=== PATIENT | male | born 1965 | race Caucasian/White ===

== ENCOUNTER → 2022-04-01 | Outpatient (CLI) | payer SELFPAY, OTHER ==
--- NOTE | 2022-04-01 15:43 | CT_ITS ---
STUDY: CT ABDOMEN AND PELVIS WITHOUT CONTRAST REASON FOR EXAM: Male, 57 years old. HEMATURIA RADIATION DOSAGE (If Supplied By Facility): CTDIvol = ( 16.35 ) mGy, DLP = ( 886.98 ) mGycm TECHNIQUE: Transaxial images were obtained from the dome of the diaphragm to the symphysis pubis without oral contrast, and without intravenous contrast. Sagittal and coronal images were reconstructed. Individualized dose optimization techniques were used for this CT. COMPARISON: None. FINDINGS: The visualized lung bases are unremarkable. The visualized portions of the heart are within normal limits. Normal liver. Normal gallbladder and extrahepatic biliary system. Normal spleen. Normal pancreas. Normal bilateral adrenal glands. No hydronephrosis or urinary tract calcifications. Solid mass arising from the left kidney measures 5.9 x 6.5 cm (image 52 series 2). Normal visualized stomach. Normal small intestine. Normal colon. The appendix is visualized and appears normal. Mild atherosclerosis. Normal inferior vena cava. Normal retroperitoneum. Nondistended urinary bladder. Normal abdominal wall. No destructive bony process. CT/Abdomen/Pelvis without Cont IMPRESSION: 5.9 x 6.5 cm left renal solid mass worrisome for renal cell carcinoma. Urology consultation recommended, if not previously done. Renal protocol CT or MRI without and with IV contrast may provide additional information. Electronically Signed: Dustin Ramesh MD (Brooks) at 16:23 EDT ,
== END | disposition home or self-care (01) ==
PROVIDERS: PCP Nurse Practitioner Family; Visit Provider Urology
DX: R31.9 Hematuria, unspecified (principal)
CPT/HCPCS: 74176

== ENCOUNTER 2022-04-14 07:32 | Inpatient (IN) | payer SELFPAY, OTHER ==
[2022-04-14] VITALS (12 sets, daily range): BP systolic 119–154; BP diastolic 79–92; PULSE 58–81; RESP 15–18; TEMP 36.4–37.4; O2SAT 93–100; BMI 29.1
--- NOTE | 2022-04-14 | KID_PTH ---
PATIENT: GLORY MIKE Jr. LOC: MS3 U#:[id number] AGE/SX: 57/M ROOM: [facility] RE04/14/[address]: Dr. 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 AM:fernando 04/14/2022 Case has been reviewed in consultation with Dr. Gee who concurs with the above diagnosis. IDC:SJ MICROSCOPIC DIAGNOSIS Left kidney, radical nephrectomy: Clear cell renal cell carcinoma. See cancer checklist below. AM:fernando 04/21/2022 COMMENT RENAL CELL CARCINOMA SUMMARY Procedure ? radical nephrectomy Specimen laterality ? left kidney Tumor size ? 7 x 6 x 5.5 cm Histologic type ? clear cell renal cell carcinoma Sarcomatoid features ? not identified Rhabdoid features ? not identified Histologic grade ? overall grade 2 with rare grade 3 Necrosis ? focally present Tumor extension ? tumor confined to kidney Margins ? uninvolved by invasive carcinoma. Lymphvascular invasion - not identified Regional lymph nodes ? no lymph nodes found Non-neoplastic kidney ? mild arterionephrosclerosis Other findings ? adrenal gland with no pathologic change PATHOLOGIC STAGE: T1b Nx Mx The above summary is in compliance with [employer] (CAP) Cancer Protocols Checklist and [place] Joint Committee on Cancer (AJCC), Staging Manual, 8th Ed. MICROSCOPIC DESCRIPTION Slides are reviewed. GROSS DESCRIPTION Received fresh for frozen section consultation labeled with the patient's name is a specimen designated left kidney. The specimen consists of a kidney with surrounding fibrofatty tissue measuring in aggregate 23 x 17.5 x 7 cm and weighing 945 gm. The kidney itself measures 12 x 8 x 6.5 cm and contains a mid to lower portion yellow-white mass with multiple foci of hemorrhage and necrosis. Two inbound customer service representative sections of the tumor are submitted for frozen section consultation. The neoplasm does not appear to extend into the perinephric fat and is not present in the soft tissue margin of resection. Dissection of the renal veins, particularly those draining the area of the mass, does not show intravascular presence of neoplasm. On sectioning, the tumor mass is roughly spherical and measures 7 x 6 x 5.5 cm. The tumor abuts the pelvicalyceal system but does not appear to invade through into the pelvicalyceal system. The tumor is sharply demarcated from the uninvolved renal parenchyma which appears essentially unremarkable. Satellite nodules of tumor are not identified. The adrenal gland measures 6.5 x 3 x 1.8 cm and is not involved by neoplasm. The distal ureter measures 8 cm in length and is grossly unremarkable. Social Work Nurse sections are submitted as follows: 1 & 2 ? inbound customer service representative sections for frozen section, 3 ? ureteric and vascular margins, 4 ? perinephric fat, 5 - renal sinus, 6 & 7 ? tumor in relationship to renal pelvis, 8 ? tumor with adjacent renal capsule, 9 ? tumor, 10-12 ? additional sections of tumor, 13 ? uninvolved kidney, 14 ? adrenal gland. / AM:fernando 04/15/2022 TC:0 CPT: 76625
--- NOTE | 2022-04-14 05:57 | EKG12_ITS ---
Test Reason : PRE OP Blood Pressure : / mmHG Vent. Rate : 075 BPM Atrial Rate : 075 BPM P-R Int : 146 ms QRS Dur : 100 ms QT Int : 388 ms P-R-T Axes : 036 -04 011 degrees QTc Int : 433 ms Normal sinus rhythm Normal ECG No previous ECGs available Confirmed by ADRI MARIA, ANTONIA ([id number]), associate entertainment editor JOHANNA CHONG ([id number]) on 04/15/2022 11:29:24 AM Referred By: George Holden Confirmed By:ANTONIA RUSH MD
[2022-04-14] MEDS: Lactated Ringers 1,000 ML 15 ML IV (06:15)
[2022-04-14 07:05] LABS: Hematocrit 40.9 % (40-54); Hemoglobin 13.6 g/dL (13.0-16.5); Mean Corp Hgb Conc 33.3 g/dL (32-36); Mean Corpuscular Hgb 32.2 pg (27.0-32.0); Mean Corpuscular Volume 96.9 fL (80-94); Mean Platelet Vol. 9.1 fl (6.2-12.0); Platelet Count 197 K/mm3 (150-450); RBC Distribution Width CV 12.8 % (11.6-14.6); RBC Distribution Width SD 45.6 fl (35.1-43.9); Red Blood Count 4.22 M/mm3 (4.6-6.2); White Blood Count 3.8 K/mm3 (4.4-11.0)
[2022-04-14] MEDS: Cefazolin 2 GM in 0.9% Normal Saline 100 ML IV (07:26)
--- NOTE | 2022-04-14 10:13 | PCM.HP.STD ---
HPI - General General Date of Admission: 04/14/22 HPI Narrative GLORY MIKE, is a 57 M who presents for a a left radical nephrectomy for suspected renal cell carcinoma. [facility] Medical History (Updated 04/14/22 @ 07:[address] George Holden MD) Anxiety Back pain Cancer Depression Dietary restriction Former smoker Heartburn History of edema History of Aquiles-French virus infection History of renal disease History of stress test Leg cramps Syncope Wears dentures Home Medications Beyond Balance 15 gtt PO/SL BID 04/12/22 [History Last Taken Unknown] Digestleyne 1 cap PO/SL BID 04/12/22 [History Last Taken Unknown] Extinguisher 1 cap PO/SL BID 04/12/22 [History Last Taken Unknown] Smooth Sailing 1 cap PO/SL BID 04/12/22 [History Last Taken Unknown] Toxic Ease 1 cap PO/SL DAILY 04/12/22 [History Last Taken Unknown] Viatmin D3 With K2 Ortho 5 gtt PO/SL BID 04/12/22 [History Last Taken Unknown] acetylcysteine [NAC] 600 mg PO BID 04/12/22 [History Last Taken Unknown] docusate sodium [Colace] 100 mg PO BID #20 cap 04/14/22 [Rx Last Taken Unknown] oxycodone-acetaminophen 1 tab PO Q6H PRN 7 Days #20 tab 04/14/22 [Rx Last Taken Unknown] Allergy/AdvReac Type Severity Reaction Status Date / Time No Known Allergies Allergy Verified 04/12/22 09:17 Surgical History History of amputation of finger of left hand History of cochlear implant Social History Smoking Status: Former smoker Vital Signs Vital Signs Vital Signs: 04/14/22 06:53 Temperature 99.4 F H Temperature Source Temporal Pulse Rate 77 Respiratory Rate 15 Respiratory Pattern Normal Blood Pressure 119/82 H Blood Pressure Mean 94 Blood Pressure Source Monitor Blood Pressure Position Semi-Fowlers Blood Pressure Location Right Arm Pulse Ox 97 Oxygen Delivery Method Room Air Weight Weight: 87 kg Body Mass Index (BMI) 29.1 Results Lab / Micro Data Result Diagrams: 04/14/22 06:48 Labs: Laboratory Results - last 24 hr 04/14/22 06:48: WBC 3.8 L, RBC 4.22 L, Hgb 13.6, Hct 40.9, MCV 96.9 H, MCH 32.2 H, MCHC 33.3, RDW Std Deviation 45.6 H, RDW Coeff of Mary Jo 12.8, Plt Count 197, MPV 9.1 04/14/22 06:48: Blood Type A POSITIVE, Antibody Screen NEGATIVE, Crossmatch See Detail
--- NOTE | 2022-04-14 10:26 | OP.PCM_ITS ---
Report of Operation Date of Procedure: 04/14/22 Pre-Operative Diagnosis: left renal mass, suspect cancer Post-Operative Diagnosis: same Surgery/Procedure Performed:: Laparoscopic robotic assisted left radical nephrectomy Description of Surgical Findings:: Patient presented to [facility] for a laparoscopic robotic assisted radical left nephrectomy. We talked about the options of management for the patient's renal mass. The patient had a renal mass. We discussed with the patient that there is always a possible metastatic disease development after this procedure and the patient understands that more treatments such as chemotherapy or oral chemotherapy may be necessary for further development of metastatic disease which may not be curable. We discussed the risks of the procedure including the risk of general anesthetic, bleeding, infection, blood transfusion, formation of hernias, recurrence of cancer in the local area, development of lymphoceles, chylous ascites, and lymph fluid collection in the renal bed. After full discussion with the patient, the patient was marked, and the patient was taken back to the operating room. Patient was taken back to the operating room was placed for supine on the table and underwent general endotracheal intubation. A Malave catheter was placed into the bladder. The patient side was recognized and marked. A timeout procedure was performed. I identified the patient the side of the surgery and the surgery that was planned to be performed. Once the patient was under general anesthetic then the patient was placed in modified lateral flank position on the patient and I had the patient's Left side up was going to proceed with a radical nephrectomy. I then infiltrated the skin with 1/2 percent Marcaine and a small incision in the skin and use a Veress needle to introduce the Veress needle into the peritoneal cavity and filled the peritoneal cavity with CO2 gas. I then placed the camera trocar under direct visualization. I then placed a right arm robotic trocar. Then if necessary scissors were used to dissect any adhesions. And then the left arm trocar was placed and a fourth robotic trocar was placed. After the trochars were placed I placed an air seal port between the #1 arm and the camera for the assistant manager retail to use during the case. Then the robot was docked and I placed scissors and prograsp and the robotic arms and proceeded first by incising the white line of Toldt and reflecting the colon off the kidney I started superiorly above the kidney reflecting the spleen of the kidney and worked all the way inferiorly after the colon was completely reflected off the kidneys fascia was grabbed and elevated and we started reflecting the mesentery of the colon off the kidney until I was able to get underneath the kidney and the inferior tail of the Gerota's fascia and I could see the gonadal vein and the ureter I went underneath the gonadal vein and the ureter and then start tracing up towards the hilum of the kidney. At this point then the fourth arm was docked and used the long Fenestrated grasper on the fourth arm to allow retraction of the kidney superiorly this allowed me to use the right and left arm to then continue the meticulous dissection toward the renal hilum it came across the gonadal vein and this was taken with clips. I dissected until I encounted the renal vein and saw bound pulse of the renal aretery. A cross destiney mbar vein was then transected and ligated with clips. Then behind the renal vein I dissected extensive and meticulous dissection was done to identify the main renal artery and several branches these were taken with clips with 2 clips down and one clip up and transected. After this meticulous dissection I made sure all the arterial inflow was taken and then the renal vein was nice and lax and then I placed 2 clips down to 1 clips up in the renal vein and transected the vein, then went superiorly and dissected between the spleen and the Gerota's fascia all the way superiorly. I then reflected the kidney off the lateral wall with electrocautery using such sharp dissection all the way down to the tail of the Gerota's fascia then came across the Gerota's fascia with an Endo PAIGE staple to staple the gonadal vein and the ureter and the fat and the inferior portion of the tail of the regional tanker truck driver's fascia then the kidney was further reflected off the lateral sidewall working away all the way superiorly until I reached the upper part of the kidney and used clips generously to control lymphatics and any small perforating blood vessels. Then finally the entire kidney within the throat fascia was free. At this point the robot was undocked. I then scrubbed in at the bedside and via the inferior fourth arm robotic trocar I placed a 15 mm Endo Catch bag and placed the specimen within the Endo Catch bag we then and made the extraction site larger around the port site and then extracted the specimen within the bag. The extraction site was then closed with 0 Vicryl in 2 layers. I then reinspected the hilum of the dissection and there was no bleeding and no significant accumulation of blood within the abdominal cavity I irrigated the abdomen copiously to ensure no bleeding. Then I closed our camera trocar with a Conor Leblanc stitch and then a closer air seal port trocar with a Conor Leblanc stitch. Then the pneumoperitoneum was released and the and all the incisions were closed in 2 layers with 4-0 Monocryl stitches. Sponges and needles were accounted for. Patient's anesthetic was reversed and extubated and taken to the PACU in stable condition blood loss was minimal. Surgeon: li Type of Anesthesia: General Drains: Malave Admit VTE Documentation VTE Present on Admission: No VTE Mechan Device Prophylaxis: SCD's VTE Pharm Prophylaxis ordered?: No
--- NOTE | 2022-04-14 10:26 | PCM.DC ---
Discharge Instructions Diet Discharge Diet: No restrictions Activity Discharge Activity: Return to Normal Activity and May Not Drive (while taking narcotic pain medications.) Dressing / Incision Call your doctor if you observe: Fever of 101 or Higher Follow Up Care Please Follow Up With: George Holden MD When: Call [phone] for an appointment Test Results: Test results from this visit will be discussed in further detail at your follow-up appointment, if applicable. Discharge Plan Admission Admit Date/Time: 04/14/22 07:32 Primary Reason for Your Visit: Left Nephrectomy Attending Provider: George Holden Primary Care Provider: Belen Lee NP Instructions Patient Instructions: Nephrectomy Dc, Discharge Instructions for ... Discharge Orders/Prescriptions Prescriptions: New docusate sodium [Colace] 100 mg capsule 100 mg PO BID Qty: 20 RF: 0 oxycodone-acetaminophen 5-325 mg tablet 1 tab PO Q6H PRN (Reason: pain) 7 Days Qty: 20 RF: 0 Continued acetylcysteine [NAC] 600 mg Capsule 600 mg PO BID RF: 0 Beyond Balance 15 gtt PO/SL BID RF: 0 Digestleyne 1 cap PO/SL BID RF: 0 Extinguisher 1 cap PO/SL BID RF: 0 Smooth Sailing 1 cap PO/SL BID RF: 0 Toxic Ease 1 cap PO/SL DAILY RF: 0 Viatmin D3 With K2 Ortho 5 gtt PO/SL BID RF: 0 Referrals / Follow Up: George Holden MD [STAFF PHYSICIAN] - Belen Lee NP, TELECOMMUNICATIONS CABLE JOINTER-C [Primary Care Provider] -
[2022-04-14] MEDS: Bupivacaine Mpf 0.5% 30 ML VIAL (10:28)
[2022-04-14] MEDS: 0.9% Normal Saline 1,000 ML 125 ML IV ×2 (12:26→19:37)
[2022-04-14] MEDS: Morphine 2 MG/ML Syringe IV ×2 (15:08→19:40)
[2022-04-14] MEDS: Ondansetron 4 MG/2 ML Vial IV (19:50)
[2022-04-15] VITALS (7 sets, daily range): BP systolic 139–150; BP diastolic 78–93; PULSE 73–85; RESP 14–18; TEMP 36.7–36.9; O2SAT 93–98
[2022-04-15] MEDS: 0.9% Normal Saline 1,000 ML 125 ML IV (03:53)
[2022-04-15] MEDS: Morphine 2 MG/ML Syringe IV (05:19)
[2022-04-15] MEDS: Ondansetron 4 MG/2 ML Vial IV (05:27)
[2022-04-15 06:00] LABS: Hematocrit 39.1 % (40-54); Hemoglobin 13.1 g/dL (13.0-16.5); Mean Corp Hgb Conc 33.5 g/dL (32-36); Mean Corpuscular Hgb 32.3 pg (27.0-32.0); Mean Corpuscular Volume 96.3 fL (80-94); Mean Platelet Vol. 9.3 fl (6.2-12.0); Platelet Count 194 K/mm3 (150-450); RBC Distribution Width CV 12.9 % (11.6-14.6); RBC Distribution Width SD 45.8 fl (35.1-43.9); Red Blood Count 4.06 M/mm3 (4.6-6.2); White Blood Count 8.2 K/mm3 (4.4-11.0)
[2022-04-15 06:26] LABS: Anion Gap 5 (5-15); BUN 13 mg/dL (7-18); Calcium,Total 9.2 mg/dL (8.5-10.1); Chloride 106 mmol/L (98-107); Creatinine, Serum 1.18 mg/dL (0.70-1.30); EST Glomerular Filtration Rate 68 mL/min (>60); Est Glom Filt Rate - Afr Amer 82 mL/min (>60); Estimated Creatinine Clearance 66.82 ml/min; Glucose 94 mg/dL (74-106); Potassium 4.4 mmol/L (3.5-5.1); Sodium Level 139 mmol/L (136-145)
--- NOTE | 2022-04-15 07:22 | PCM.PN.GU ---
Subjective Subjective sitting up in bed has not walk yet no flatus or BM, some belching Objective Data Objective Data Vital Signs: Vital Signs Temp Pulse Resp BP Pulse Ox 98.5 F 85 16 144/78 H 96 04/15/22 04:55 04/15/22 04:55 04/15/22 04:55 04/15/22 04:55 04/15/22 04:55 Oxygen Flow Rate (L/min) 2 Oxygen Delivery Method Nasal Cannula Weight: 87 kg Body Mass Index (BMI) 29.1 Intake & Output: Intake and Output for Last 24 Hours 04/13/22 04/14/22 04/15/22 23:59 23:59 23:59 Intake Total 3507.92 / 3507.92 1200 / 1200 Output Total 1000 / 1000 1050 / 1050 Balance 2507.92 / 2507.92 150 / 150 Lab / Micro Data Result Diagrams: 04/15/22 05:08 04/15/22 05:08 Labs: Laboratory Results - last 24 hr 04/14/22 06:48: Blood Type A POSITIVE, Antibody Screen NEGATIVE, Crossmatch See Detail 04/15/22 05:08: WBC 8.2, RBC 4.06 L, Hgb 13.1, Hct 39.1 L, MCV 96.3 H, MCH 32.3 H, MCHC 33.5, RDW Std Deviation 45.8 H, RDW Coeff of Mary Jo 12.9, Plt Count 194, MPV 9.3 04/15/22 05:08: Sodium 139, Potassium 4.4, Chloride 106, Carbon Dioxide 28.0, Anion Gap 5, BUN 13, Creatinine 1.18, Estim Creat Clear Calc 66.82, Est GFR (MDRD) Af Amer 82, Est GFR (MDRD) Non-Af 68, BUN/Creatinine Ratio 11.0, Glucose 94, Calcium 9.2 Assessment & Plan Assessment/Plan (1) Left kidney mass: PLAN: d/c zita whiting ivf incentive spirometer ambulate clear liquid diet
[2022-04-15] MEDS: Acetaminophen 500 MG Tablet PO ×3 (07:36→20:25)
[2022-04-15] MEDS: Docusate Sodium 100 MG Capsule PO ×2 (07:36→20:25)
[2022-04-15] MEDS: oxyCODONE 5 MG Tablet PO ×2 (07:36→13:36)
--- NOTE | 2022-04-15 11:50 | CASEMGMT ---
RN CM BATTERY STARTER CM to room to meet with patient for initial transition planning/care coordination assessment. RN ROMARIO introduced self and role at [facility]. Pt voices understanding and consents to assessment at this time. Pt resting in bed in no distress at this time. Pt is A/O. Pt is legally blind and deaf. Has cochlear implant and able to hear some and ready lips. and dtr @ bedside and helped to interpret for pt and provided most of the information. Care providers, pharmacy, and demographics verified/updated at this time. PCP: NITZA Lee Specialists: Dr Holden-urology, Dr Felix Ozuna (?sp) @ [facility] [place] for auto-immune disorder Preferred Pharmacy: [facility] Insurance: [facility] [place] Prescription Benefit: none LNOK: Keshia Living Arrangements: Lives w/ in one-story home w/no steps to enter. Independent. able to assist and son lives nearby and able to assist, as needed. Transportation: Hire drivers DME: Uses a cane. Denies needs for further DME HHC/SNF: Hx of [facility] in 2014. No hx of HHC. No needs identified. Pt and family wish for pt to return home and state has no concerns with going home at time of discharge. CM to follow for any further discharge planning/needs. Pt and family voice no concerns/needs at this time. Advised them to ask for CM if any further questions/concerns/needs arise. They voice understanding. PLAN: Home w/family support and discharge plans in place. Danica OSBORNE RN, CM
[2022-04-16] VITALS (7 sets, daily range): BP systolic 124–147; BP diastolic 84–89; PULSE 73–90; RESP 18; TEMP 36.7–37; O2SAT 90–97
[2022-04-16] MEDS: oxyCODONE 5 MG Tablet PO ×2 (01:28→08:43)
[2022-04-16] MEDS: Acetaminophen 500 MG Tablet PO ×2 (01:28→08:42)
[2022-04-16] MEDS: Docusate Sodium 100 MG Capsule PO ×2 (08:43→21:19)
--- NOTE | 2022-04-16 10:46 | PCM.PN.BLA ---
Progress Note Abdomen is nice and soft and benign no nausea or vomiting some belching Assessment & Plan Assessment/Plan (1) Left kidney mass: PLAN: Advance to regular diet as tolerated, Duphalac suppository, ambulate, simethicone to help with gas pain. We can adjust his pain medicine. Continues to progress hopefully discharge over the weekend.
[2022-04-16] MEDS: Bisacodyl 10 MG Suppository RC (11:10)
[2022-04-16] MEDS: Acetaminophen 500 MG Tablet 1000 MG PO ×2 (12:14→21:19)
[2022-04-17] MEDS: oxyCODONE 5 MG Tablet PO ×3 (00:34→17:56)
[2022-04-17 03:09] VITALS: BP 140/90; PULSE 93; RESP 18; TEMP 36.8; O2SAT 93
[2022-04-17] MEDS: Acetaminophen 500 MG Tablet 1000 MG PO ×3 (06:29→21:11)
[2022-04-17 07:27] VITALS: O2SAT 92
--- NOTE | 2022-04-17 08:33 | PCM.PN.BLA ---
Progress Note 57-year-old male status post radical nephrectomy on the left side he is doing well, tolerating regular diet but no gas or bowel movements yet still burping. He is in the shower this morning. Anticipate probably home tomorrow.
[2022-04-17 09:21] VITALS: BP 126/83; PULSE 90; RESP 16; TEMP 36.8; O2SAT 95
[2022-04-17] MEDS: Docusate Sodium 100 MG Capsule PO ×2 (09:27→21:11)
[2022-04-17] MEDS: Bisacodyl 10 MG Suppository RC (09:27)
[2022-04-17 15:20] VITALS: BP 143/87; PULSE 80; RESP 18; TEMP 36.8; O2SAT 97
[2022-04-17 21:20] VITALS: BP 138/84; PULSE 82; RESP 16; TEMP 36.8; O2SAT 94
[2022-04-18] MEDS: Acetaminophen 500 MG Tablet 1000 MG PO (05:20)
[2022-04-18 05:30] VITALS: BP 126/95; PULSE 80; RESP 18; TEMP 36.7; O2SAT 93
[2022-04-18 08:10] VITALS: BP 140/91; PULSE 85; RESP 16; TEMP 37.1; O2SAT 94
[2022-04-18] MEDS: Docusate Sodium 100 MG Capsule PO (09:18)
--- NOTE | 2022-04-18 10:05 | DCINST_ITS ---
Discharge Instructions Diet Discharge Diet: No restrictions Activity Discharge Activity: Return to Normal Activity and May Not Drive (while taking narcotic pain medications.) Dressing / Incision Call your doctor if you observe: Fever of 101 or Higher Follow Up Care Please Follow Up With: George Holden MD When: Call [phone] for an appointment Test Results: Test results from this visit will be discussed in further detail at your follow-up appointment, if applicable. Discharge Plan Admission Admit Date/Time: 04/14/22 07:32 Primary Reason for Your Visit: Left Nephrectomy Attending Provider: George Holden Primary Care Provider: Belen Lee NP Instructions Patient Instructions: Nephrectomy Dc, Discharge Instructions for ... Discharge Orders/Prescriptions Prescriptions: New docusate sodium [Colace] 100 mg capsule 100 mg PO BID Qty: 20 RF: 0 oxycodone-acetaminophen 5-325 mg tablet 1 tab PO Q6H PRN (Reason: pain) 7 Days Qty: 20 RF: 0 Continued acetylcysteine [NAC] 600 mg Capsule 600 mg PO BID RF: 0 Beyond Balance 15 gtt PO/SL BID RF: 0 Digestleyne 1 cap PO/SL BID RF: 0 Extinguisher 1 cap PO/SL BID RF: 0 Smooth Sailing 1 cap PO/SL BID RF: 0 Toxic Ease 1 cap PO/SL DAILY RF: 0 Viatmin D3 With K2 Ortho 5 gtt PO/SL BID RF: 0 Referrals / Follow Up: George Holden MD [STAFF PHYSICIAN] - Belen Lee NP, BARREL ASSEMBLER HELPER-C [Primary Care Provider] -
--- NOTE | 2022-04-18 10:05 | DS.PCM_ITS ---
Providers Date of Admission: 04/14/22 Primary Care Physician: ROSIE Macedo Reason For Visit: robotic radical nephrectomy Diagnosis Discharge Diagnosis (1) Left kidney mass: Status: Acute Code(s): N28.89 - Other specified disorders of kidney and ureter Medications at Discharge Home Medications Beyond Balance 15 gtt PO/SL BID 04/12/22 Digestleyne 1 cap PO/SL BID 04/12/22 Extinguisher 1 cap PO/SL BID 04/12/22 Smooth Sailing 1 cap PO/SL BID 04/12/22 Toxic Ease 1 cap PO/SL DAILY 04/12/22 Viatmin D3 With K2 Ortho 5 gtt PO/SL BID 04/12/22 acetylcysteine [NAC] 600 mg PO BID 04/12/22 docusate sodium [Colace] 100 mg PO BID #20 cap 04/14/22 oxycodone-acetaminophen 1 tab PO Q6H PRN 7 Days #20 tab 04/14/22 Hospital Course Summary of Care Provided Hospital Course: s/p left nephrectomy for renal cell carcinoma doing well, yumiko reg diet, no BMs but abd soft and benign. Weight / BMI Weight Weight: 87 kg Body Mass Index (BMI) 29.1 ABG / Lab / Microbiology Data Result Diagrams: 04/15/22 05:08 04/15/22 05:08 Laboratory: Laboratory Results - last 24 hr 04/14/22 06:48: Crossmatch See Detail D/C Instructions Discharge Diet: No restrictions Call your doctor if you observe: Fever of 101 or Higher Please Follow Up With: George Holden MD When: Call [phone] for an appointment Meaningful Use Info Meaningful Use Diagnoses (Choose all that apply): None applicable Discharge Plan Admission Admit Date/Time: 04/14/22 07:32 Primary Reason for Your Visit: Left Nephrectomy Attending Provider: George Holden Primary Care Provider: Belen Lee NP Instructions Patient Instructions: Nephrectomy Dc, Discharge Instructions for ... Discharge Orders/Prescriptions Prescriptions: New docusate sodium [Colace] 100 mg capsule 100 mg PO BID Qty: 20 RF: 0 oxycodone-acetaminophen 5-325 mg tablet 1 tab PO Q6H PRN (Reason: pain) 7 Days Qty: 20 RF: 0 Continued acetylcysteine [NAC] 600 mg Capsule 600 mg PO BID RF: 0 Beyond Balance 15 gtt PO/SL BID RF: 0 Digestleyne 1 cap PO/SL BID RF: 0 Extinguisher 1 cap PO/SL BID RF: 0 Smooth Sailing 1 cap PO/SL BID RF: 0 Toxic Ease 1 cap PO/SL DAILY RF: 0 Viatmin D3 With K2 Ortho 5 gtt PO/SL BID RF: 0 Referrals / Follow Up: George Holden MD [STAFF PHYSICIAN] - Belen Lee NP, EQUIPMENT INSTALLER-C [Primary Care Provider] -
[2022-04-18 11:06] VITALS: O2SAT 95
== END 2022-04-18 11:35 | disposition home or self-care (01) | DRG 658 ==
LOC: SDC 08:58 → MS3 08:58
PROVIDERS: Anesthesiology; Admitting Provider Urology; PCP Nurse Practitioner Family; Referring Provider Urology; Visit Provider Urology
PROC: 0TT14ZZ Resection of Left Kidney, Percutaneous Endoscopic Approach (ICD-10-PCS; CPT 50546; principal; 2022-04-14 07:10)
DX: C64.2 Malignant neoplasm of left kidney, except renal pelvis (principal); F32.A Depression, unspecified; F41.9 Anxiety disorder, unspecified; H91.90 Unspecified hearing loss, unspecified ear; Z87.891 Personal history of nicotine dependence; Z79.899 Other long term (current) drug therapy
CPT/HCPCS: 80048; 85027; 86850; 86900; 86901; 86920; 86922; 88307; 88331; 93005; 99251; J7030; J7120; G0463; J2405

== ENCOUNTER → 2022-08-31 | Outpatient (CLI) | payer SELFPAY, OTHER ==
--- NOTE | 2022-08-31 09:51 | RAD_ITS ---
STUDY: X-RAY CHEST REASON FOR EXAM: Male, 57 years old. MALIGNANT NEOPLASM OF L KIDNEY EXCEPT RENAL PELVIS TECHNIQUE: PA or AP and lateral COMPARISON: None. FINDINGS: Mild bibasilar fibrosis or atelectasis. Suboptimal inspiratory effort. There is no demonstrated pleural abnormality. Normal size heart. Normal mediastinum and trace. Normal visualized pulmonary arteries. Normal visualized aortic arch and descending thoracic aorta. Normal visualized thoracic spine. Normal visualized ribs, clavicles, and shoulders. There is no demonstrated abnormality of the visualized soft tissue structures of the upper abdomen. RAD/Chest PA and Lateral IMPRESSION: Mild bibasilar fibrosis or atelectasis. Suboptimal inspiratory effort. Electronically Signed: Keith Packer MD, WILLIAM at 11:27 EDT ,
[2022-08-31 11:04] LABS: Hematocrit 41.9 % (40-54); Hemoglobin 14.1 g/dL (13.0-16.5); Mean Corp Hgb Conc 33.7 g/dL (32-36); Mean Corpuscular Hgb 32.6 pg (27.0-32.0); Mean Platelet Vol. 9.2 fl (6.2-12.0); Platelet Count 228 K/mm3 (150-450); RBC Distribution Width CV 13.2 % (11.6-14.6); Red Blood Count 4.32 M/mm3 (4.6-6.2); White Blood Count 4.4 K/mm3 (4.4-11.0)
[2022-08-31 11:51] LABS: Anion Gap 4 (5-15); BUN 15 mg/dL (7-18); BUN/Creat Ratio 10.3 RATIO (10-20); Calcium,Total 9.6 mg/dL (8.5-10.1); Chloride 106 mmol/L (98-107); Creatinine, Serum 1.45 mg/dL (0.70-1.30); EST Glomerular Filtration Rate 53 mL/min (>60); Est Glom Filt Rate - Afr Amer 64 mL/min (>60); Glucose 93 mg/dL (74-106); PSA,Total- Diagnostic 0.72 ng/mL (0.0-4.0); Potassium 4.6 mmol/L (3.5-5.1); Sodium Level 138 mmol/L (136-145)
== END | disposition home or self-care (01) ==
LOC: LAB 09:43
PROVIDERS: PCP Nurse Practitioner Family; Referring Provider Urology; Visit Provider Urology
DX: C64.2 Malignant neoplasm of left kidney, except renal pelvis (principal)
CPT/HCPCS: 36415; 71046; 80048; 84153; 85027

== ENCOUNTER → 2022-09-20 | Outpatient (CLI) | payer SELFPAY, OTHER ==
--- NOTE | 2022-09-20 10:16 | NM_ITS ---
CLINICAL: 57-year-old male with history of renal cell carcinoma. WHOLE BODY 99m Tc MDP RADIONUCLIDE BONE SCINTIGRAPHY COMPARISON: None available FINDINGS: Following the intravenous administration of 24.8 mCi of 99m Tc MDP, whole body bone images reveal: 1. Enhanced radiopharmaceutical concentration is defined in the acromioclavicular and sternoclavicular compartments of both shoulders, the bilateral wrists, both knee articulations, the visualized portion of the elbow bilaterally. 2. The remaining skeletal structures are scintigraphically unremarkable with normal-appearing right renal image and urinary bladder activity identified. The left kidney is scintigraphically absent. NM/Bone Scan Whole Body IMPRESSION: 1. The increase in tracer uptake noted in the bilateral shoulder and wrist articulations, right-left elbows and knees bilaterally is most consistent with degenerative arthrosis. 2. There is no scintigraphic evidence of diffuse axial skeletal metastatic disease. Electronically Signed: Philippe Dowd, at 22:11 EDT ,
== END | disposition home or self-care (01) ==
PROVIDERS: PCP Nurse Practitioner Family; Referring Provider Urology; Visit Provider Urology
DX: C64.2 Malignant neoplasm of left kidney, except renal pelvis (principal)
CPT/HCPCS: 78306; A9503

== ENCOUNTER → 2023-03-01 | Outpatient (CLI) | payer OTHER, SELFPAY ==
--- NOTE | 2023-03-01 09:33 | RAD_ITS ---
STUDY: X-RAY CHEST REASON FOR EXAM: Male, 58 years old. Known history of left renal neoplasm TECHNIQUE: PA and lateral views of the chest. COMPARISON: 08/31/2022 FINDINGS: The lungs are clear and expanded. There is no demonstrated pleural abnormality. Normal size heart. Normal mediastinum and trace. Normal visualized pulmonary arteries. Normal visualized aortic arch and descending thoracic aorta. Normal visualized thoracic spine. Normal visualized ribs, clavicles, and shoulders. There is no demonstrated abnormality of the visualized soft tissue structures of the upper abdomen. RAD/Chest PA and Lateral IMPRESSION: No acute pulmonary process, no interval change Electronically Signed: Eliu Simmons MD at 9:42 EDT ,
[2023-03-01 09:49] LABS: Hematocrit 40.9 % (40-54); Hemoglobin 13.9 g/dL (13.0-16.5); Mean Corpuscular Hgb 32.9 pg (27.0-32.0); Mean Corpuscular Volume 96.7 fL (80-94); Platelet Count 196 K/mm3 (150-450); RBC Distribution Width CV 13.5 % (11.6-14.6); RBC Distribution Width SD 47.8 fl (35.1-43.9); Red Blood Count 4.23 M/mm3 (4.6-6.2); White Blood Count 4.2 K/mm3 (4.4-11.0)
[2023-03-01 10:13] LABS: ALB/GLOB Ratio 0.8 RATIO (0.9-2.4); AST(SGOT) 24 U/L (15-37); Alanine Aminotransfer ALT/SGPT 39 U/L (16-61); Albumin, Serum 3.2 g/dL (3.2-5.0); Alkaline Phosphatase 96 U/L (45-117); Anion Gap 4 (5-15); BUN 22 mg/dL (7-18); BUN/Creat Ratio 15.4 RATIO (10-20); Calcium,Total 8.8 mg/dL (8.5-10.1); Chloride 107 mmol/L (98-107); Creatinine, Serum 1.43 mg/dL (0.70-1.30); EST Glomerular Filtration Rate 54 mL/min (>60); Est Glom Filt Rate - Afr Amer 65 mL/min (>60); Globulin 4.2 g/dL (2.2-4.2); Glucose 104 mg/dL (74-106); Potassium 4.1 mmol/L (3.5-5.1); Protein, Total 7.4 g/dL (6.4-8.2); Sodium Level 137 mmol/L (136-145)
== END | disposition home or self-care (01) ==
LOC: LAB 09:15
PROVIDERS: PCP Nurse Practitioner Family; Referring Provider Urology; Visit Provider Urology
DX: C64.2 Malignant neoplasm of left kidney, except renal pelvis (principal)
CPT/HCPCS: 36415; 71046; 80053; 85027

== ENCOUNTER → 2023-08-02 | Outpatient (CLI) | payer OTHER, SELFPAY ==
--- NOTE | 2023-08-02 14:25 | RAD_ITS ---
STUDY: X-RAY - PELVIS REASON FOR EXAM: Male, 58 years old. Pain for years. TECHNIQUE: One view of the pelvis was obtained. COMPARISON: None. FINDINGS: There is a non-specific bowel gas pattern. Normal visualized soft tissue structures. Normal bilateral iliac wings, sacroiliac joints and visualized sacrum. Normal visualized bilateral superior and inferior pubic rami. Normal pubic symphysis. Normal ischial tuberosities. Mild arthrosis of the right hip without osteophytes. . Moderate arthrosis of the left hip with small osteophytes. RAD/Pelvis 1 or 2 Views IMPRESSION: Arthrosis of both hips, left slightly greater than right. No acute abnormality or erosive changes. Electronically Signed: Delbert Dangelo MD at 15:05 EDT ,
[2023-08-02 17:52] LABS: Erythrocyte Sedimentation Rate 11 mm/hr (0-20)
[2023-08-02 17:55] LABS: Absolute Neutrophil Count 1.4 X10^3/uL (2.0-7.7); Basophil# 0.02 X10^3/uL; Basophil% 0.6 % (0-1); Eosinophil# 0.05 X10^3/uL; Eosinophils% 1.4 % (0-5); Hematocrit 42.8 % (40-54); Hemoglobin 14.2 g/dL (13.0-16.5); Lymphocyte % 39.3 % (19-41); Mean Corp Hgb Conc 33.2 g/dL (32-36); Mean Corpuscular Volume 99.5 fL (80-94); Monocyte# 0.64 X10^3/uL; NRBC Flagged by Analyzer 0 % (0-5); Neutrophil # 1.44 X10^3/uL (2.7-7.7); Neutrophil % 40.4 % (47-70); Platelet Count 205 K/mm3 (150-450); RBC Distribution Width CV 13.5 % (11.6-14.6); RBC Distribution Width SD 49.9 fl (35.1-43.9); White Blood Count 3.6 K/mm3 (4.4-11.0)
[2023-08-02 18:38] LABS: ALB/GLOB Ratio 0.8 RATIO (0.9-2.4); AST(SGOT) 30 U/L (15-37); Alanine Aminotransfer ALT/SGPT 57 U/L (16-61); Albumin, Serum 3.6 g/dL (3.2-5.0); Alkaline Phosphatase 90 U/L (45-117); Anion Gap 6 (5-15); BUN 23 mg/dL (7-18); BUN/Creat Ratio 15.1 RATIO (10-20); Calcium,Total 9.1 mg/dL (8.5-10.1); Chloride 107 mmol/L (98-107); Creatinine, Serum 1.52 mg/dL (0.70-1.30); EST Glomerular Filtration Rate 50 mL/min (>60); Est Glom Filt Rate - Afr Amer 61 mL/min (>60); Globulin 4.5 g/dL (2.2-4.2); Glucose 83 mg/dL (74-106); Potassium 3.6 mmol/L (3.5-5.1); Protein, Total 8.1 g/dL (6.4-8.2); Rheumatoid Factor < 10.0 IU/mL (<15); Sodium Level 140 mmol/L (136-145)
[2023-08-02 19:08] LABS: Hepatitis B Surface Antibody Non-Reactive; Hepatitis B Surface Antigen Non-Reactive (Nonreactive)
[2023-08-02 19:13] LABS: Hepatitis C Antibody Reactive (Nonreactive)
[2023-08-04 12:09] LABS: ANTINUCLEAR ANTIBODIES DIRECT Positive (Negative)
[2023-08-04 14:09] LABS: CCP IgG Antibodies 3 units (0-19); QNTFERON TB Mitogen Value > 10.00 IU/mL (.); QNTFERON TB Nil Value 0.19 IU/mL (.); QNTFERON TB1+ Ag Value 0.18 IU/mL (.); QNTFERON TB2+ Ag Value 0.22 IU/mL (.); QNTIFERON TB Positive Criteria Negative (Negative)
== END | disposition home or self-care (01) ==
LOC: MTLAB 14:19
PROVIDERS: PCP Nurse Practitioner Family; Visit Provider Internal Medicine Rheumatology
DX: L40.59 Other psoriatic arthropathy (principal); L40.8 Other psoriasis; M47.892 Other spondylosis, cervical region
CPT/HCPCS: 36415; 72170; 80053; 85025; 85652; 86038; 86140; 86200; 86431; 86480; 86706; 86803; 87340

== ENCOUNTER → 2023-08-12 | Outpatient (CLI) | payer OTHER, SELFPAY ==
[2023-08-12 18:56] LABS: Color, Urine Yellow (Yellow); Glucose, Dipstick Normal (Normal); Ketone-Dipstick Negative (Negative); Leukocyte Esterase-Dipstick Negative /ul (Negative); Nitrite-Dipstick Negative (Negative); Occult Blood-Urine 10 /ul (Negative); Protein-Dipstick Negative (Negative); Urine Bilirubin Dipstick Negative (Negative); Urine Clarity Clear (Clear); Urine Urobilinogen Normal (Normal)
[2023-08-12 19:08] LABS: Protein, Urine (Random) 20.9 mg/dL (<11.9); Protein:Creat Ratio 185 mg/g CRE (0-200)
[2023-08-15 12:08] LABS: Anti-Centromere B Ab <0.2 AI (0.0-0.9); Anti-Jo <0.2 AI (0.0-0.9); Anti-Scleroderma-70 AB <0.2 AI (0.0-0.9); Anti-dsDNA Ab 31 IU/mL (0-9); RNP Ab 0.2 AI (0.0-0.9); SJOGREN'S Anti-SS-A test < 0.2 AI (0.0-0.9); SJOGREN'S Anti-SS-B test < 0.2 AI (0.0-0.9); Smith Ab <0.2 AI (0.0-0.9)
[2023-08-15 15:07] LABS: Complement C3 159 mg/dL (82-167); HCV Quant. RNA PCR 4200000 IU/mL (.); HCV log 10 6.623 (.)
== END | disposition home or self-care (01) ==
LOC: MTLAB 15:40
PROVIDERS: PCP Nurse Practitioner Family; Referring Provider Internal Medicine Rheumatology; Visit Provider Internal Medicine Rheumatology
DX: L40.59 Other psoriatic arthropathy (principal); L40.8 Other psoriasis
CPT/HCPCS: 36415; 81002; 82570; 84156; 86160; 86225; 86235; 87522

== ENCOUNTER → 2023-08-30 | Outpatient (CLI) | payer SELFPAY, OTHER ==
--- NOTE | 2023-08-30 09:39 | CT_ITS ---
HISTORY: MALIGNANT NEOPLASM OF LEFT KIDNEY. TECHNIQUE: Helically acquired images were obtained of the abdomen and pelvis without oral or IV contrast. A radiation dose optimization technique was used for this scan. 536 images. COMPARISON: 04/01/2022. FINDINGS: LOWER CHEST: Small calcified right lower lobe granulomas. BOWEL: Bowel including appendix nondilated. No focal pericolonic inflammatory change. PERITONEUM: No significant free fluid. LIVER/SPLEEN/PANCREAS: Nonenlarged. GALLBLADDER/BILIARY TREE: Gallbladder present. KIDNEYS AND URETERS: Left nephrectomy without recurrent mass. No right nephrolithiasis or hydronephrosis. ADRENAL GLANDS: No nodules. VESSELS: No abdominal aortic aneurysm. Mild atherosclerosis. Small retroperitoneal lymph nodes without pathologic enlargement. PELVIC ORGANS: Unremarkable. ABDOMINAL WALL: Small fat-containing inguinal hernias. BONES: Mild degenerative change without suspicious osteoblastic or osteolytic lesion. CT/Abdomen/Pelvis without Cont IMPRESSION: Left nephrectomy without evidence for tumor recurrence or metastatic disease in the abdomen or pelvis. Electronically Signed: Blanca Chowdhury MD at 10:04 EDT ,
[2023-08-30 09:45] LABS: Hematocrit 43.9 % (40-54); Hemoglobin 14.2 g/dL (13.0-16.5); Mean Corp Hgb Conc 32.3 g/dL (32-36); Mean Corpuscular Hgb 31.7 pg (27.0-32.0); Mean Platelet Vol. 8.6 fl (6.2-12.0); Platelet Count 203 K/mm3 (150-450); RBC Distribution Width SD 50.7 fl (35.1-43.9); Red Blood Count 4.48 M/mm3 (4.6-6.2); White Blood Count 4.9 K/mm3 (4.4-11.0)
--- NOTE | 2023-08-30 09:48 | RAD_ITS ---
INDICATION: MALIGNANT NEOPLASM OF LEFT KIDNEY EXAMINATION/TECHNIQUE: X-RAY - XR Chest 2 Views COMPARISON: FINDINGS: LINES/DEVICES: None. LUNGS: No consolidation, edema or effusion. No pneumothorax. MEDIASTINUM AND CARDIOVASCULAR STRUCTURES: Cardiac silhouette not enlarged. Central airways and mediastinal contour are unremarkable. BONES AND SOFT TISSUES: Unremarkable. RAD/Chest PA and Lateral IMPRESSION: No radiographic evidence of acute cardiopulmonary disease. Electronically Signed: George Oneill MD at 10:29 EDT ,
[2023-08-30 10:24] LABS: ALB/GLOB Ratio 0.7 RATIO (0.9-2.4); AST(SGOT) 80 U/L (15-37); Alanine Aminotransfer ALT/SGPT 234 U/L (16-61); Albumin, Serum 3.1 g/dL (3.2-5.0); Alkaline Phosphatase 95 U/L (45-117); Anion Gap 3 (5-15); BUN 27 mg/dL (7-18); BUN/Creat Ratio 16.1 RATIO (10-20); Calcium,Total 9.1 mg/dL (8.5-10.1); Chloride 107 mmol/L (98-107); Creatinine, Serum 1.68 mg/dL (0.70-1.30); EST Glomerular Filtration Rate 45 mL/min (>60); Est Glom Filt Rate - Afr Amer 54 mL/min (>60); Globulin 4.6 g/dL (2.2-4.2); Glucose 140 mg/dL (74-106); Potassium 4.1 mmol/L (3.5-5.1); Protein, Total 7.7 g/dL (6.4-8.2); Sodium Level 140 mmol/L (136-145)
== END | disposition home or self-care (01) ==
PROVIDERS: PCP Nurse Practitioner Family; Referring Provider Urology; Visit Provider Urology
DX: C64.2 Malignant neoplasm of left kidney, except renal pelvis (principal)
CPT/HCPCS: 36415; 71046; 74176; 80053; 85027

== ENCOUNTER → 2023-10-03 | Outpatient (CLI) | payer OTHER, SELFPAY ==
[2023-10-03 18:01] LABS: International Normalized Ratio 1.2; Prothrombin Time (Protime)PT. 14.9 SECONDS (11.7-14.9)
[2023-10-03 18:34] LABS: AST(SGOT) 62 U/L (15-37); Alanine Aminotransfer ALT/SGPT 121 U/L (16-61); Albumin, Serum 3.2 g/dL (3.2-5.0); Alkaline Phosphatase 85 U/L (45-117); Bilirubin, Direct 0.13 mg/dL (0.00-0.30); Globulin 4.9 g/dL (2.2-4.2); Protein, Total 8.1 g/dL (6.4-8.2)
[2023-10-06 16:09] LABS: AFP, Tumor Marker 2.9 ng/mL (0.0-8.4); Hepatitis C Genotype 1b (.)
== END | disposition home or self-care (01) ==
LOC: MTLAB 16:00
PROVIDERS: PCP Nurse Practitioner Family; Referring Provider Internal Medicine Gastroenterology; Visit Provider Internal Medicine Gastroenterology
DX: B19.20 Unspecified viral hepatitis C without hepatic coma (principal)
CPT/HCPCS: 36415; 80076; 82105; 85610; 87902

== ENCOUNTER → 2024-02-21 | Outpatient (CLI) | payer SELFPAY, OTHER ==
--- NOTE | 2024-02-21 13:30 | RAD_ITS ---
INDICATION: Malignant neoplasm of left kidney, except renal pelvis EXAMINATION/TECHNIQUE: X-RAY - XR Chest 2 Views COMPARISON: Prior study dated: 08/30/2023 FINDINGS: LINES/DEVICES: None. LUNGS: No consolidation, edema or effusion. No pneumothorax. MEDIASTINUM AND CARDIOVASCULAR STRUCTURES: Cardiac silhouette not enlarged. Central airways and mediastinal contour are unremarkable. BONES AND SOFT TISSUES: Unremarkable. RAD/Chest PA and Lateral IMPRESSION: No radiographic evidence of acute cardiopulmonary disease. Electronically Signed: Jacky Forde MD at 15:53 EDT ,
[2024-02-21 14:59] LABS: Absolute Lymphocyte Count 0.96 X10^3/uL (0.83-4.51); Absolute Neutrophil Count 2.2 X10^3/uL (2.0-7.7); Basophil# 0.02 X10^3/uL; Basophil% 0.5 % (0-1); Hematocrit 42.5 % (40-54); Hemoglobin 13.8 g/dL (13.0-16.5); Lymphocyte # 0.96 X10^3/ul (0.83-4.51); Lymphocyte % 25.3 % (19-41); Mean Corp Hgb Conc 32.5 g/dL (32-36); Mean Corpuscular Volume 92.4 fL (80-94); Mean Platelet Vol. 9.3 fl (6.2-12.0); Monocyte# 0.61 X10^3/uL; Monocyte% 16.1 % (0-10); NRBC Flagged by Analyzer 0 % (0-5); Neutrophil % 57.8 % (47-70); Platelet Count 236 K/mm3 (150-450); RBC Distribution Width CV 12.8 % (11.6-14.6); White Blood Count 3.8 K/mm3 (4.4-11.0)
[2024-02-21 15:43] LABS: ALB/GLOB Ratio 0.8 RATIO (0.9-2.4); AST(SGOT) 14 U/L (15-37); Alanine Aminotransfer ALT/SGPT 17 U/L (16-61); Albumin, Serum 3.4 g/dL (3.2-5.0); Alkaline Phosphatase 78 U/L (45-117); Anion Gap 5 (5-15); BUN 24 mg/dL (7-18); BUN/Creat Ratio 14.2 RATIO (10-20); Calcium,Total 9.5 mg/dL (8.5-10.1); Chloride 105 mmol/L (98-107); Creatinine, Serum 1.69 mg/dL (0.70-1.30); EST Glomerular Filtration Rate 44 mL/min (>60); Est Glom Filt Rate - Afr Amer 54 mL/min (>60); Globulin 4.4 g/dL (2.2-4.2); Glucose 156 mg/dL (74-106); PSA,Total - Annual Screen 0.81 ng/mL (0.00-4.00); Potassium 4.4 mmol/L (3.5-5.1); Protein, Total 7.8 g/dL (6.4-8.2); Sodium Level 138 mmol/L (136-145)
== END | disposition home or self-care (01) ==
PROVIDERS: PCP Nurse Practitioner Family; Referring Provider Urology; Visit Provider Urology
DX: C64.2 Malignant neoplasm of left kidney, except renal pelvis (principal); L40.59 Other psoriatic arthropathy; L40.8 Other psoriasis; Z12.5 Encounter for screening for malignant neoplasm of prostate
CPT/HCPCS: 36415; 71046; 80053; 84153; 85025; G0103

== ENCOUNTER → 2024-08-21 | Outpatient (CLI) | payer SELFPAY, OTHER ==
--- NOTE | 2024-08-21 13:36 | CT_ITS ---
STUDY: CT ABDOMEN AND PELVIS WITHOUT CONTRAST REASON FOR EXAM: Male, 59 years old. MALIGNANT NEOPLASM OF LEFT KIDNEY. RADIATION DOSAGE (If Supplied By Facility): CTDIvol = ( 15.02 ) mGy, DLP = ( 1267.43 ) mGycm TECHNIQUE: Transaxial images were obtained from the dome of the diaphragm to the symphysis pubis without oral contrast, and without intravenous contrast. Sagittal and coronal images were reconstructed. Individualized dose optimization techniques were used for this CT. COMPARISON: Comparison is made with prior study August 30, 2023. FINDINGS: Minimal increased linear markings at the lung bases suggestive of underlying atelectasis and/or scarring. Calcified granulomas in the right lower lobe. Coronary artery calcification. Normal liver. Normal gallbladder and extrahepatic biliary system. Normal spleen. Normal pancreas. Normal bilateral adrenal glands. Normal right kidney. The patient is status post left nephrectomy. Normal visualized stomach. Normal small intestine. Normal colon. The appendix is visualized and appears normal. There is scattered atherosclerotic calcification of the abdominal aorta, without a demonstrated aneurysm. Normal inferior vena cava. There is a small retroperitoneal lymphadenopathy with enlarged nodes no greater than 10mm in the short axis diameter. Normal urinary bladder. Small bilateral inguinal hernias containing fat. There are mild degenerative changes of the visualized lumbar spine. CT/Abdomen/Pelvis without Cont IMPRESSION: Status post left nephrectomy. There has been no change as compared to prior study. Electronically Signed: Kevin Berger MD at 14:32 EDT ,
--- NOTE | 2024-08-21 13:44 | RAD_ITS ---
STUDY: X-RAY CHEST REASON FOR EXAM: Male, 59 years old. MALIGNANT NEOPLASM OF LEFT KIDNEY TECHNIQUE: PA and lateral views of the chest. COMPARISON: 02/21/2024 FINDINGS: Poor inspiration with some bibasilar atelectasis There is no demonstrated pleural abnormality. Normal size heart. Normal mediastinum and trace. Normal visualized pulmonary arteries. Normal visualized aortic arch and descending thoracic aorta. Normal visualized thoracic spine. Normal visualized ribs, clavicles, and shoulders. There is no demonstrated abnormality of the visualized soft tissue structures of the upper abdomen. RAD/Chest PA and Lateral IMPRESSION: Poor inspiration with some bibasilar atelectasis Electronically Signed: Philippe Jaquez MD at 8:43 EDT ,
[2024-08-21 14:07] LABS: Hematocrit 41.2 % (40-54); Hemoglobin 13.8 g/dL (13.0-16.5); Mean Corp Hgb Conc 33.5 g/dL (32-36); Mean Corpuscular Hgb 30.5 pg (27.0-32.0); Mean Corpuscular Volume 91.2 fL (80-94); Mean Platelet Vol. 9.2 fl (6.2-12.0); Platelet Count 226 K/mm3 (150-450); RBC Distribution Width CV 14.3 % (11.6-14.6); Red Blood Count 4.52 M/mm3 (4.6-6.2); White Blood Count 3.9 K/mm3 (4.4-11.0)
[2024-08-21 14:25] LABS: Anion Gap 6 (5-15); BUN 23 mg/dL (7-18); Calcium,Total 9.8 mg/dL (8.5-10.1); Chloride 104 mmol/L (98-107); Creatinine, Serum 2.55 mg/dL (0.70-1.30); EST Glomerular Filtration Rate 28 mL/min (>60); Est Glom Filt Rate - Afr Amer 33 mL/min (>60); Glucose 113 mg/dL (74-106); Potassium 3.9 mmol/L (3.5-5.1); Sodium Level 136 mmol/L (136-145)
== END | disposition home or self-care (01) ==
PROVIDERS: PCP Nurse Practitioner Family; Referring Provider Nurse Practitioner; Visit Provider Nurse Practitioner
DX: C64.2 Malignant neoplasm of left kidney, except renal pelvis (principal)
CPT/HCPCS: 36415; 71046; 74176; 80048; 85027

== ENCOUNTER 2024-08-22 10:00 | Outpatient (RCR) | payer SELFPAY, OTHER | END 2024-08-22 19:00 | disposition home or self-care (01) | LOC: PT 10:00 | PROVIDERS: PCP Nurse Practitioner Family; Referring Provider Orthopaedic Surgery Orthopaedic Surgery of the Spine; Visit Provider Orthopaedic Surgery Orthopaedic Surgery of the Spine | DX: C64.2 Malignant neoplasm of left kidney, except renal pelvis (principal); M54.12 Radiculopathy, cervical region; M54.2 Cervicalgia | CPT/HCPCS: 97140; 97161 ==

== ENCOUNTER → 2024-11-06 | Outpatient (CLI) | payer SELFPAY, OTHER ==
--- NOTE | 2024-11-06 07:21 | US_ITS ---
INDICATION: H/O HEP C/LEUKOPENIA -- LIVER/SPLEEN EXAMINATION: Ultrasound US Abdomen Limited (quadrant) TECHNIQUE: Kwan scale and color doppler imaging was performed of the right upper quadrant. COMPARISON: CT scan of the abdomen and pelvis of 08/21/2024. FINDINGS: LIVER: There is mild increased echogenicity. The liver measures about 17.4 cm in length. The portal vein is patent with normal hepatopedal flow. No focal hepatic lesion. There is no free fluid. GALLBLADDER AND BILIARY TREE: No shadowing gallstone, pericholecystic fluid or gallbladder wall thickening is demonstrated. The proximal common bile duct measures 5 mm, which is within normal limits for the patient''s age. Sonographic Hill''s sign: Negative. PANCREAS: The pancreas is obscured by bowel gas and not visualized. KIDNEYS: The right kidney measures 12 cm in length and is mildly echogenic in texture. No evidence of hydronephrosis. Status post left nephrectomy. US/Liver IMPRESSION: 1. Status post left nephrectomy. 2. No evidence of gallstones or biliary dilatation. 3. Mild hepatic steatosis. Electronically Signed: Jacky Forde MD at 10:12 EST ,
== END | disposition home or self-care (01) ==
LOC: US 07:18
PROVIDERS: PCP Student in an Organized Health Care Education/Training Program; Referring Provider Internal Medicine Hematology & Oncology; Visit Provider Internal Medicine Hematology & Oncology
DX: D72.819 Decreased white blood cell count, unspecified (principal)
CPT/HCPCS: 76705